=== PATIENT | female | born 1990 | race African-American/Black ===

== ENCOUNTER 2017-05-20 08:38 | Emergency (ER) | payer OTHER ==
[2017-05-20 09:07] VITALS: BP 162/104; PULSE 70; TEMP 99.3; BMI 35.3
[2017-05-20] MEDS ORDERED: IBUPROFEN 400 MG TABLET (FP) PO ONE ×2 (09:29→09:33)
--- NOTE | 2017-05-20 09:40 | PDOC ---
History of Present Illness - General Chief Complaint: Sore Throat Stated Complaint: SORE THROAT Time Seen by Provider: 05/20/17 08:55 - History of Present Illness Initial Comments: 05/20/17 11:41 Chief complaint: Sore throat History of present illness Sore throat with difficulty swallowing for 2 days. No drooling, difficulty breathing, nausea, vomiting, or cough. Review of systems: As noted above. 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 No tobacco alcohol or prescription drugs Physical exam: Alert and oriented no acute distress cheerful and cooperative Afebrile, vital signs normal HEENT shows only mild pharyngeal injection without exudate swelling or mass neck supple without bruit mass or nodes Chest clear full breath sounds throughout bilaterally CV regular without murmur rub or gallop Abdomen benign Skin clear, no rash, adequate turgor and mucous membranes Impression: Viral URI blood strep Plan: Strep screen is negative. Symptomatic treatment and follow-up as directed. Past History - Past Medical History Allergies/Adverse Reactions: Allergies Allergy/AdvReac Type Severity Reaction Status Date / Time No Known Allergies Allergy Verified 05/20/17 08:41 Home Medications: Ambulatory Orders Guaifenesin AC [Robitussin-AC] 1 - 2 tsp PO Q4HWA PRN #90 ml MDD 6 05/20/17 Ibuprofen 800 mg PO TID PRN #20 tablet 05/20/17 Metoprolol Succinate [Toprol Xl] 50 mg PO DAILY 05/20/17 COPD: No HTN: Yes - Suicide/Smoking/Psychosocial Hx Smoking History: Never smoked Have you smoked in the past 12 months: No Information on smoking cessation initiated: No Hx Alcohol Use: No Drug/Substance Use Hx: No Substance Use Type: None *Physical Exam - Vital Signs Last Vital Signs Temp Pulse Resp BP Pulse Ox 99.3 F 70 20 162/104 98 05/20/17 08:40 05/20/17 08:40 05/20/17 08:40 05/20/17 08:40 05/20/17 08:40 ED Treatment Course - ADDITIONAL ORDERS Additional order review: 05/20/17 09:01 Group A Strep Rapid Antigen - Final Throat NEGATIVE FOR THE ANTIGEN OF BETA HEMOLYTIC STREP GROUP A - Medications Given in the ED: ED Medications Discontinued Medications Generic Name Dose Route Start Last Admin Trade Name Freq PRN Reason Stop Dose Admin Ibuprofen 800 mg 05/20/17 09:29 05/20/17 09:32 Motrin - PO 05/20/17 09:30 800 mg ONCE ONE Administration *DC/Admit/Observation/Transfer Diagnosis at time of Disposition: Acute viral pharyngitis - Discharge Dispostion Disposition: HOME Condition at time of disposition: Stable Admit: No - Prescriptions Prescriptions: Guaifenesin AC [Robitussin-AC] 1 - 2 tsp PO Q4HWA PRN #90 ml MDD 6 PRN Reason: congestion Ibuprofen 800 mg PO TID PRN #20 tablet PRN Reason: Fever Or Pain - Referrals - Patient Instructions Printed Discharge Instructions: DI for Viral Pharyngitis - Post Discharge Activity Forms/Work/School Notes: Back to Work
== END 2017-05-20 10:15 | disposition home or self-care (01) ==
LOC: FER 08:38
DX: J02.8 Acute pharyngitis due to other specified organisms (principal); B97.89 Other viral agents as the cause of diseases classified elsewhere; I10 Essential (primary) hypertension
CPT/HCPCS: 87070; 87430; 99281-25